=== PATIENT | female | born 1950 | race Caucasian/White ===

== ENCOUNTER 2018-02-14 11:58 | Emergency (ER) | payer MEDICARE, OTHER ==
[~2018-02-14] VITALS: Ht 157.5 cm; Wt 74.8 kg
--- NOTE | 2018-02-14 13:00 | Diagnostic Imaging Report ---
PROCEDURE:ANKLE 3VIEW LT - [facility] COMPARISON:None. INDICATIONS:s/p fall pain in lateral side of LT ankle, fall 30 minutes ago FINDINGS: See conclusion. CONCLUSION: Limited by a single view. Oblique nondisplaced distal left fibular fracture. Dictated by: Travis Goel M.D. on 02/14/2018 at 13:06 Electronically approved by: Travis Goel M.D. on 02/14/2018 at 13:06
[2018-02-14 13:25] VITALS: BP 142/69
== END 2018-02-14 13:34 | disposition home or self-care (01) ==
LOC: FSED 11:58
DX: S82.435A Nondisplaced oblique fracture of shaft of left fibula, initial encounter for closed fracture (principal); W01.0XXA Fall on same level from slipping, tripping and stumbling without subsequent striking against object, initial encounter; Y92.008 Other place in unspecified non-institutional (private) residence as the place of occurrence of the external cause; I10 Essential (primary) hypertension; E11.9 Type 2 diabetes mellitus without complications; E78.5 Hyperlipidemia, unspecified
CPT/HCPCS: 99284

== ENCOUNTER 2018-04-07 07:37 | Observation (INO) | payer MEDICARE, OTHER ==
--- NOTE | 2018-04-06 09:45 | Diagnostic Imaging Report ---
PROCEDURE: X-RAY CHEST, TWO VIEWS COMPARISON: None. INDICATIONS: PREOPERATIVE CHEST XRAY FOR LUMBAR SPINE SURGERY FINDINGS: LUNGS: No consolidations or edema. PLEURA: No effusions or pneumothorax. HEART \T\ MEDIASTINUM: The heart is within normal size-limits. BONES \T\ SOFT TISSUES: Mild thoracic spine scoliosis. Clips within the upper abdomen noted on the lateral view but not seen on the PA view. CONCLUSION: No acute thoracic abnormality. Mat Carpenter D.O. Dictated by: Mat Carpenter D.O. on 04/06/2018 at 9:53 Electronically approved by: Mat Carpenter D.O. on 04/06/2018 at 9:53
[2018-04-06 09:58] LABS: BASOPHILS % 0.4 % (0.0-1.0); EOSINOPHILS # (AUTO) 0.1 (0.0-0.4); EOSINOPHILS % 1.4 % (0.0-6.0); HEMATOCRIT 40.1 % (34.2-44.1); HEMOGLOBIN 13.5 g/dL (12.0-16.0); LYMPHOCYTES # (AUTO) 1.1 (1.0-3.2); LYMPHOCYTES % 19.9 % (18.0-39.1); MEAN CORPUSCULAR HGB CONC 33.7 g/dL (31-35); MONOCYTES # (AUTO) 0.5 (0.2-0.8); MONOCYTES % 8.4 % (4.4-11.3); NEUTROPHILS # (AUTO) 3.9 (2.1-6.9); PLATELET COUNT 157 x10e3/uL (140-360); RED BLOOD COUNT 4.36 x10e6/uL (3.6-5.1)
[2018-04-06 10:20] LABS: ANION GAP 15.8 mmol/L (8-16); CALCIUM 9.5 mg/dL (8.4-10.2); CREATININE, SERUM 1.26 mg/dL (0.57-1.11); POTASSIUM 4.8 mmol/L (3.5-5.1)
[2018-04-06 10:27] LABS: INR 0.86; PARTIAL THROMBOPLASTIN TIME 26.2 seconds (23.8-35.5); PROTHROMBIN TIME 12.5 seconds (11.9-14.5)
[~2018-04-07] VITALS: Ht 157.5 cm; Wt 77.1 kg
[~2018-04-07 07:37] MED LIST: BACITRACIN 50,000 UNIT VIAL ONE; BUPIVACAINE 0.5%/EPI 30 ML SDV INJ ONE; DIOVAN HCT 1601 EACH; GELATIN SPONGE 12-7MM ONE; GLIPIZIDE5 MG PO; METFORMIN HCL850 MG PO; NORCO 10-325 T1 EACH; PRILOSEC2.5 MG; THROMBIN FOR SOLN 5,000 UNIT VIAL ONE
[2018-04-07] MEDS ORDERED: CEFAZOLIN SOD 2 GM/D5W 50ML 50 ML IV ONE (09:21)
[2018-04-07] MEDS ORDERED: PROMETHAZINE HCL (IM) 25 MG/ML VIAL IM PRN (12:15)
[2018-04-07] MEDS ORDERED: ONDANSETRON HCL INJ 2 MG/ML VIAL IV PRN (12:15)
[2018-04-07] MEDS ORDERED: ACETAMINOPHEN 325 MG TAB PO PRN (12:15)
[2018-04-07] MEDS ORDERED: OXYCODONE/ACETAMINOPHEN 5-325 1 EACH TABLET PO PRN (12:15)
[2018-04-07] MEDS ORDERED: CARISOPRODOL 350 MG TAB PO PRN (12:15)
[2018-04-07] MEDS ORDERED: ZOLPIDEM TARTRATE 5 MG TAB PO PRN (12:15)
[2018-04-07] MEDS ORDERED: MORPHINE SULFATE 5 MG/ML VIAL IM PRN (12:15)
[2018-04-07] MEDS ORDERED: CEPACOL SORE THROAT LOZENGES PO PRN (12:15)
[2018-04-07] MEDS ORDERED: MAGNESIUM/ALUMINUM/SIMETHICONE 30 ML UDC PO PRN (12:15)
[2018-04-07] MEDS ORDERED: HYDROMORPHONE 2MG/ML 2 MG/ML ML IV PRN (12:15)
--- NOTE | 2018-04-07 13:16 | Operative Report ---
DATE OF PROCEDURE: April 07, 2018 PREOPERATIVE DIAGNOSIS: Left L4-5 disk herniation and with inferior migration of the disk fragment into the axilla of the L5 nerve root with severe radiculopathy, M51.16. POSTOPERATIVE DIAGNOSIS: Left L4-5 disk herniation and with inferior migration of the disk fragment into the axilla of the L5 nerve root with severe radiculopathy, M51.16. PROCEDURE PERFORMED: Left L4-5 laminotomy, medial facetectomy, and microsurgical diskectomy, 20494. ANESTHESIA: General. INDICATIONS: The patient is a woman who presents with excruciating left leg pain and is found to have a large central L4-5 disk herniation with inferior migration of the extruded disk fragment into the axilla of the left L5 nerve root. She was taken to the operating room for a microsurgical diskectomy. PROCEDURE: After the induction of general anesthesia, the patient was placed on the operating table in prone position over a Irwin frame. The lumbar region was prepped and draped in sterile fashion. A preoperative x-ray was obtained. A small midline incision was created. The lumbar fascia was opened to the left of midline, and a subperiosteal dissection was carried out to expose the left side of the L4 and L5 laminae and the medial aspect of the facet joint. A 2nd x-ray confirmed correct localization. The operating microscope was brought in. A high-speed drill equipped with a ada bur was used to drill the inferior aspect of the lamina of L4, the medial rim of the L4-5 facet joint and the superior aspect of the lamina of L5. The ligamentum flavum was resected, and the dural sac and the L5 nerve root were fully exposed. At first the shoulder of the L5 nerve root was examined. The nerve root was found to be under significant tension medially and could not be retracted. Therefore, attention was redirected to the axilla of the nerve root. The epidural veins overlying the axilla were bipolar coagulated and divided with microscissors, and the extruded disk material immediately came into view, splaying the nerve root away from the dural sac. The herniated disk material was mobilized with a micro ball probe and removed as several fragments with a micropituitary rongeur until the axilla had become fully decompressed. At this point it was possible to mobilize the L5 nerve root and retract it medially and explore the shoulder of the nerve root. The posterior longitudinal ligament and posterior annulus of the disk were incised with a number 11 blade. A ball probe was passed into the ventral epidural space, and ventral pressure was exerted to extrude the central subligamentous disk herniation. This was then retrieved and removed. This maneuver was repeated several times until the herniated disk had been completely evacuated. The loose contents of the L4-5 disk were then evacuated with curettes and pituitary rongeur. Excellent decompression was thus achieved. The wound was irrigated with Bacitracin solution. Meticulous hemostasis was secured. The retractor was removed. The lumbar fascia was closed with 0 Vicryl sutures. Subcutaneous layer was closed with 2-0 Vicryl sutures. The skin was closed with 3-0 Monocryl sutures in subcuticular fashion. Steri-Strips and a dressing were applied. The patient was awakened, extubated, and taken to the postanesthesia care unit in stable condition. No intraoperative complications were encountered. Estimated blood loss was 10 mL. Job#: [id number] EV
--- NOTE | 2018-04-07 13:27 | Diagnostic Imaging Report ---
Single portable lateral crosstable radiograph of the lumbar spine - 1 view HISTORY: X-ray for surgical level COMPARISON: None available. FINDINGS: Bones: No acute displaced fracture. Osseous alignment is within normal limits. Joints: The joint spaces are well-maintained. Soft tissues: A radiopaque linear density is seen posteriorly at the L4/L5 posterior spinous process IMPRESSION: A radiopaque linear density is seen posteriorly at the L4/L5 posterior spinous process Signed by: Dr. Grabiel Guerrero M.D. on 04/07/2018 1:24 PM
--- NOTE | 2018-04-07 13:29 | Diagnostic Imaging Report ---
Single portable lateral crosstable radiograph of the lumbar spine - 1 view HISTORY: X-ray for surgical level. Left L4/5 disc herniation COMPARISON: None available. FINDINGS: Bones: No acute displaced fracture. Osseous alignment is within normal limits. Joints: The joint spaces are well-maintained. Soft tissues: Grossly unremarkable IMPRESSION: Limited single portable lateral crosstable radiograph of the lumbar spine. Signed by: Dr. Grabiel Guerrero M.D. on 04/07/2018 1:26 PM
[2018-04-07 14:00] VITALS: BP 154/72
[2018-04-07] MEDS ORDERED: CEFAZOLIN SOD 1 GM/D5W 50ML 50 ML IV SCH (14:00)
[2018-04-07] MEDS: LACTATED RINGER'S 1,000 ML IV SCH ×2 (15:00→20:21)
[2018-04-07 16:31] VITALS: BP 161/70
[2018-04-07] MEDS ORDERED: ROCURONIUM BROMIDE 10 MG/ML 5ML VIAL ONE (17:58)
[2018-04-07] MEDS ORDERED: DEXAMETHASONE SOD PHOS INJ 4 MG/ML VIAL ONE (17:58)
[2018-04-07] MEDS ORDERED: NEOSTIGMINE 5 MG/5ML SYR ONE (17:58)
[2018-04-07] MEDS ORDERED: LIDOCAINE HCL 2% LOCAL INJ 5 ML SDV VIAL INJ ONE (17:58)
[2018-04-07] MEDS: CEFAZOLIN SOD 1 GM VIAL IV SCH (17:58)
[2018-04-07] MEDS ORDERED: PROPOFOL IV EMULSION 10 MG/ML 20 ML VIAL ONE (17:58)
[2018-04-07] MEDS ORDERED: ONDANSETRON HCL INJ 2 MG/ML VIAL ONE (17:58)
[2018-04-07] MEDS ORDERED: LIDOCAINE HCL 2% JELLY 5 ML TUBE ONE (17:58)
[2018-04-07] MEDS ORDERED: SEVOFLURANE INHAL SOLN 250 ML PEN BTL ONE (17:58)
[2018-04-07] MEDS ORDERED: GLYCOPYRROLATE INJ 1MG/ 5 ML SYR ONE (17:58)
[2018-04-07] MEDS ORDERED: MIDAZOLAM HCL 2 MG/2 ML VIAL ONE (18:21)
[2018-04-07] MEDS ORDERED: FENTANYL CITRATE/PF 100MCG/2 ML INJ ONE (18:21)
[2018-04-07 20:00] VITALS: BP 150/67
[2018-04-07 20:37] VITALS: BP 150/67
[2018-04-08] VITALS: BP 139/88
[2018-04-08] MEDS: CEFAZOLIN SOD 1 GM VIAL IV SCH ×2 (01:39→08:33)
[2018-04-08 04:00] VITALS: BP 132/61
[2018-04-08] MEDS: LACTATED RINGER'S 1,000 ML IV SCH (04:41)
[2018-04-08] MEDS ORDERED: PANTOPRAZOLE SOD 40 MG TABEC PO SCH (07:30)
[2018-04-08 07:40] VITALS: BP 166/66
[2018-04-08] MEDS ORDERED: METFORMIN HCL 500 MG TAB CR PO SCH (09:00)
[2018-04-08] MEDS ORDERED: GLIPIZIDE 5 MG TAB PO SCH ×2 (09:00)
[2018-04-08] MEDS ORDERED: OMEPRAZOLE 20 MG CAP PO SCH (09:00)
[2018-04-08] MEDS ORDERED: VALSARTAN 80 MG TAB PO SCH (09:00)
[2018-04-08] MEDS ORDERED: METFORMIN HCL 850 MG TAB PO SCH (09:00)
[2018-04-08 09:15] VITALS: BP 166/72
[2018-04-08] MEDS ORDERED: NORCO 7.5-3251 EACH PO (10:05)
--- OUTSIDE RECORDS SUMMARY | 2018-04-12 12:56 | XMS REPORT ---
Author Author [facility] Address Unknown Phone Unavailable Care Team Providers Care [employer] Supervisor Name Role Phone LILLY VERNON Unavailable Unavailable Martha CORDOBA Unavailable Unavailable Problems This patient has no known problems. Allergies, Adverse Reactions, Alerts This patient has no known allergies or adverse reactions. Medications This patient has no known medications. Results Test Description Test Time Test Comments Text Results Atomic Results Result Comments SPINE 1 VW LUMBAR 2018-04-07 13:24:00 [place] [address] Patient Name: SHAHLA GALLEGOS MR #: [id number] : 1950 Age/Sex: 68/F Req #: [id number] Adm Physician: LILLY VERNON MD Ordered by: LILLY VERNON MD Report #: [id number] Location: PACU Room/Bed: [facility]1 Procedure: [id number] DX/SPINE 1 VW LUMBAR Exam Date: 04/07/18 Exam Time: 1039 REPORT STATUS: Signed Single portable lateral crosstable radiograph of the lumbar spine - 1 view HISTORY: X-ray for surgical level. Left L4/5 disc herniation COMPARISON: None available. FINDINGS: Bones: No acute displaced fracture. Osseous alignment is within normal limits. Joints: The joint spaces are well-maintained. Soft tissues: Grossly unremarkable IMPRESSION: Limited single portable lateral crosstable radiograph of the lumbar spine. Signed by: Dr. Grabiel Guerrero M.D. on 04/07/2018 1:26 PM Dictated By: GRABIEL GUERRERO MD, MD Transcribed By: CHEY on 04/07/181325 COPY TO: LILLY VERNON MD SPINE 1 VW LUMBAR 2018-04-07 13:22:00 [place] [address] Patient Name: SHAHLA GALLEGOS MR #: [id number] : 1950 Age/Sex: 68/F Req #: [id number] Adm Physician: LILLY VERNON MD Ordered by: LILLY VERNON MD Report #: [id number] Location: PACU Room/Bed: PACU-1 Procedure: [id number] DX/SPINE 1 VW LUMBAR Exam Date: 04/07/18 Exam Time: 1051 REPORT STATUS: Signed Single portable lateral crosstable radiograph of the lumbar spine - 1 view HISTORY: X-ray for surgical level COMPARISON: None available. FINDINGS: Bones: No acute displaced fracture. Osseous alignment is within normal limits. Joints: The joint spaces are well-maintained. Soft tissues: A radiopaque linear density is seen posteriorly at the L4/L5 posterior spinous process IMPRESSION: A radiopaque linear density is seen posteriorly at the L4/L5 posterior spinous process Signed by: Dr. Grabiel Guerrero M.D. on 04/07/2018 1:24 PM Dictated By: GRABIEL GUERRERO MD, MD 23 Transcribed By: CHEY on 04/07/18 1324 COPY TO: LILLY VERNON MD CHEST 2 VIEWS 2018-04-06 09:53:00 [place] [address] Patient Name: SHAHLA GALLEGOS MR #: [id number] : 1950 Age/Sex: 68/F Req #: [id number] Adm Physician: Ordered by: LILLY VERNON MD Report #: [id number] Location: OR Room/Bed: Procedure: [id number] DX/CHEST 2 VIEWS Exam Date: 04/06/18 Exam Time: 924 REPORT STATUS: Signed PROCEDURE: X-RAY CHEST, TWO VIEWS COMPARISON: None. INDICATIONS: PREOPERATIVE CHEST XRAY FOR LUMBAR SPINE SURGERY FINDINGS: LUNGS: No consolidations or edema. PLEURA: No effusions or pneumothorax. HEART T MEDIASTINUM: The heart is within normal size-limits. BONES T SOFT TISSUES: Mild thoracic spine scoliosis. Clips within the upper abdomen noted on the lateral view but not seen on the PA view. CONCLUSION: No acute thoracic abnormality. Amador Carpenter D.O. Dictated by: Amador Carpenter D.O. on 04/06/2018 at 9:53 Electronically approved by: Amador Carpenter D.O. on 04/06/2018 at 9:53 Dictated By: AAMDOR CARPENTER DO 2 Transcribed By: MUNDO on 04/06/18952 COPY TO: LILLY VERNON MD [address] LT - HOPD 2018-02-14 13:06:00 [place] [id number] Patient Name: SHAHLA GALLEGOS MR #: [id number] : 1950 Age/Sex: 67/F Req #: [id number] [facility] Physician: Ordered by: JYOTI CORDOBA MD Report #: [id number] Location: [facility] Room/Bed: Procedure: HOPD/ANKLE 3VIEW LT - [facility] Exam Date: 02/14/18 Exam Time: 1220 REPORT STATUS: Signed PROCEDURE: ANKLE 3VIEW LT - [facility] COMPARISON: None. INDICATIONS: s/p fall pain in lateral side of LT ankle, fall 30 minutes ago FINDINGS: See conclusion. CONCLUSION: Limited by a single view. Oblique nondisplaced distal left fibular fracture. Dictated by: Travis Loredo M.D. on 02/14/2018 at 13:06 Electronically approved by: Travis Loredo M.D. on 02/14/2018 at 13:06 Dictated By: TRAVIS LOREDO MD 1306 Transcribed By: MUNDO on 02/14/18 1306 COPY TO: JYOTI CORDOBA MD
== END 2018-04-08 10:50 | disposition home or self-care (01) ==
LOC: OR 07:37 → PACU V 12:04 → MED/SURG 13:21
PROVIDERS: ADMIT Neurological Surgery; ATTEND Neurological Surgery
DX: M51.16 Intervertebral disc disorders with radiculopathy, lumbar region (principal); E11.9 Type 2 diabetes mellitus without complications; Z79.84 Long term (current) use of oral hypoglycemic drugs; I10 Essential (primary) hypertension; Z88.2 Allergy status to sulfonamides; Z88.8 Allergy status to other drugs, medicaments and biological substances; Z01.810 Encounter for preprocedural cardiovascular examination; Z01.812 Encounter for preprocedural laboratory examination; Z01.811 Encounter for preprocedural respiratory examination
CPT/HCPCS: 36415 ×2; 63047; 71046; 72020; 80048; 82948; 85025; 85610; 85730; 86850; 86900; 88304; 93005; 96376; G0378 ×2; J0690 ×2; J1100; J1170; J2001 ×2; J2250; J2405; J3490; J7120; S0164; 96365

== ENCOUNTER → 2020-12-31 | Day surgery (SDC) | payer MEDICARE, OTHER ==
[2020-12-27 16:28] LABS: BASOPHILS % 0.2 % (0.0-1.0); EOSINOPHILS # (AUTO) 0.1 (0.0-0.4); EOSINOPHILS % 1.6 % (0.0-6.0); HEMATOCRIT 38.3 % (34.2-44.1); HEMOGLOBIN 12.6 g/dL (12.0-16.0); LYMPHOCYTES # (AUTO) 0.9 (1.0-3.2); LYMPHOCYTES % 21.5 % (18.0-39.1); MEAN CORPUSCULAR HEMOGLOBIN 29.4 pg (28-32); MEAN CORPUSCULAR HGB CONC 32.9 g/dL (31-35); MEAN CORPUSCULAR VOLUME 89.5 fL (81-99); MONOCYTES # (AUTO) 0.3 (0.2-0.8); MONOCYTES % 6.1 % (4.4-11.3); NEUTROPHILS % 70.1 % (38.7-80.0); PLATELET COUNT 126 x10e3/uL (140-360); RED BLOOD COUNT 4.28 x10e6/uL (3.6-5.1); RED CELL DISTRIBUTION WIDTH 14.1 % (11.7-14.4)
[2020-12-27 16:45] LABS: ANION GAP 13.7 mmol/L (8-16); CREATININE, SERUM 1.17 mg/dL (0.57-1.11); POTASSIUM 4.7 mmol/L (3.5-5.1)
[~2020-12-31] MED LIST changes: -BACITRACIN 50,000 UNIT VIAL ONE; -BUPIVACAINE 0.5%/EPI 30 ML SDV INJ ONE; +BUPIVACAINE HCL 0.5% INJ 30 ML VIAL INJ ONE; +DEXAMETHASONE SOD PHOS INJ 4 MG/ML VIAL ONE; +FENTANYL CITRATE/PF 100MCG/2 ML INJ ONE; -GELATIN SPONGE 12-7MM ONE; +HYDROCODON-ACE1 EAC9 PO; +INSULIN REGULAR, HUMAN 100 UNIT/1 ML ONE; +KETOROLAC TROMETHAMINE 30 MG/ML VIAL ONE; +LIDOCAINE HCL 1% LOCAL INJ 20 ML VIAL ONE; +MIDAZOLAM HCL 2 MG/2 ML VIAL ONE; +NORCO 7.5-3251 EACH PO; +ONDANSETRON HCL INJ 2MG/ML 2ML 2 MG/ML VIAL ONE; +POVIDONE IODINE 0.05% 0.05 % ML PO ONE; +PROPOFOL IV EMULSION 10 MG/ML 20 ML VIAL ONE; +ROCURONIUM BROMIDE 10 MG/ML 5ML VIAL IV ONE; +SEVOFLURANE INHAL SOLN 250 ML PEN BTL ONE; -THROMBIN FOR SOLN 5,000 UNIT VIAL ONE; +TIZANIDINE HCL4 M1 PO; +VITAMIN D PO
[2020-12-31 15:55] VITALS: BP 129/62
== END | disposition home or self-care (01) ==
LOC: OR 11:57
PROVIDERS: ATTEND Orthopaedic Surgery
DX: M65.331 Trigger finger, right middle finger (principal); E11.22 Type 2 diabetes mellitus with diabetic chronic kidney disease; I12.9 Hypertensive chronic kidney disease with stage 1 through stage 4 chronic kidney disease, or unspecified chronic kidney disease; N18.9 Chronic kidney disease, unspecified; K75.9 Inflammatory liver disease, unspecified; M54.5 Low back pain; Z88.2 Allergy status to sulfonamides; Z88.8 Allergy status to other drugs, medicaments and biological substances; Z01.810 Encounter for preprocedural cardiovascular examination; Z01.812 Encounter for preprocedural laboratory examination; Z01.818 Encounter for other preprocedural examination; Z79.84 Long term (current) use of oral hypoglycemic drugs
CPT/HCPCS: 26055; 36415 ×2; 71046; 80048; 82948; 85025; 93005; J1100; J1885; J2001; J2250; J2405; J2704; J3010; J1817

== ENCOUNTER 2021-01-20 15:00 | Outpatient (RCR) | payer MEDICARE, OTHER ==
[~2021-01-20 15:00] MED LIST changes: -BUPIVACAINE HCL 0.5% INJ 30 ML VIAL INJ ONE; -DEXAMETHASONE SOD PHOS INJ 4 MG/ML VIAL ONE; -FENTANYL CITRATE/PF 100MCG/2 ML INJ ONE; -INSULIN REGULAR, HUMAN 100 UNIT/1 ML ONE; -KETOROLAC TROMETHAMINE 30 MG/ML VIAL ONE; -LIDOCAINE HCL 1% LOCAL INJ 20 ML VIAL ONE; -MIDAZOLAM HCL 2 MG/2 ML VIAL ONE; -ONDANSETRON HCL INJ 2MG/ML 2ML 2 MG/ML VIAL ONE; -POVIDONE IODINE 0.05% 0.05 % ML PO ONE; -PROPOFOL IV EMULSION 10 MG/ML 20 ML VIAL ONE; -ROCURONIUM BROMIDE 10 MG/ML 5ML VIAL IV ONE; -SEVOFLURANE INHAL SOLN 250 ML PEN BTL ONE
== END 2021-01-25 ==
LOC: OT 15:00
PROVIDERS: ATTEND Orthopaedic Surgery
DX: M65.331 Trigger finger, right middle finger (principal)

== ENCOUNTER → 2021-02-25 | Outpatient (RCR) | payer MEDICARE, OTHER | LOC: OT 01-29 14:57 | PROVIDERS: ATTEND Orthopaedic Surgery | DX: M65.331 Trigger finger, right middle finger (principal) | CPT/HCPCS: 97010 ×9; 97035 ×8; 97110 ×8; 97140 ×4; L3913 ==

== ENCOUNTER 2021-03-20 12:00 | Outpatient (RCR) | payer MEDICARE, OTHER | END 2021-03-27 | LOC: OT 12:00 | PROVIDERS: ATTEND Orthopaedic Surgery | DX: M65.331 Trigger finger, right middle finger (principal) ==